=== PATIENT | female | born 1980 | race Caucasian/White ===

== ENCOUNTER 2018-01-24 20:11 | Emergency (ER) | payer OTHER, SELFPAY ==
--- NOTE | 2018-01-24 20:39 | RAD ---
THREE VIEWS LEFT ANKLE: 01/24/18 HISTORY: Trauma with left ankle pain. AP, lateral and oblique views left ankle obtained. Three views left ankle demonstrate no evidence of left ankle fractures, subluxations or bony lesions. IMPRESSION: Normal three views left ankle. POS: [facility]
--- NOTE | 2018-01-24 20:40 | RAD ---
THREE VIEWS LEFT FOOT: 01/24/18 HISTORY: Left foot pain after injury. AP, lateral, and oblique views left foot is obtained. Three views left foot demonstrate no evidence of left foot fractures, subluxations or bony lesions. IMPRESSION: Normal three views left foot. POS: [facility]
[2018-01-24] MEDS ORDERED: Ketorolac Tromethamine 60 MG/2 ML VIAL ONE ×2 (20:45→20:46)
[2018-01-24] MEDS ORDERED: Ibuprofen 800 MG TAB ONE (20:49)
[2018-01-24] MEDS ORDERED: cloNIDine 0.1 MG TAB ONE (21:19)
== END 2018-01-24 22:20 | disposition home or self-care (01) ==
LOC: ERS 20:11
DX: S93.602A Unspecified sprain of left foot, initial encounter (principal); S93.402A Sprain of unspecified ligament of left ankle, initial encounter; Z71.6 Tobacco abuse counseling; F17.210 Nicotine dependence, cigarettes, uncomplicated; X50.9XXA Other and unspecified overexertion or strenuous movements or postures, initial encounter
CPT/HCPCS: 99406; J1885

== ENCOUNTER 2018-04-07 18:28 | Emergency (ER) | payer SELFPAY ==
[2018-04-07 19:16] LABS: Bilirubin Negative (Negative); Blood, Urine Large (Negative); Clarity CLEAR (Clear); Glucose, Urine (Dipstick) >=1000 mg/dL (Negative); Leukocyte Negative (Negative); Nitrite Negative (Negative); Protein, Urine (Dipstick) Negative (Neg-Trace); Specific Gravity, Urine 1.036 (1.002-1.036); Urobilinogen 0.2 mg/dL (0.2-1.0)
[2018-04-07 19:17] LABS: Bacteria/HPF None Seen HPF (None Seen); Hyaline Casts/LPF 0-3 HYALINE CAST LPF (0-3 Hyaline); Pregnancy Test - Urine (BHCG) Negative (Negative); Pregu Control Background? CLEAR/WHITE (CLR/WHITE); Pregu Control Bar Appear? YES (CONTROL BAR); RBC/HPF 21-50 HPF (0-3); Specific Gravity 1.036 (1.002-1.036); Squamous Epithelial 0-3 HPF (0-3); WBC/HPF 0-3 HPF (0-3)
[2018-04-07] MEDS ORDERED: Acetaminophen/Codeine 30-300mg Tablet ONE (19:45)
[2018-04-07 20:09] LABS: #Eosinphils 0.1 thou/uL (0.0-0.7); #Lymphocytes 1.3 thou/uL (1.20-3.40); #Monocytes 0.5 thou/uL (0.11-0.59); #Neutrophils 3.8 thou/uL (1.40-6.50); %Basophils 0.7 % (0.0-1.0); %Eosinophils 1.3 % (0.0-10.0); %Lymphocytes 23.2 % (21.0-51.0); %Monocytes 8.2 % (0.0-10.0); %Neutrophils 66.6 % (42.0-75.0); Hemoglobin 17.3 g/dL (12.0-16.0); Mean Corpuscular HGB CONC 35.3 g/dL (32.0-36.0); Mean Corpuscular Volume 90.5 fL (78.0-98.0); Mean Platelet Volume 7.9 fL (7.4-10.4); Platelet Count 141 thou/uL (130-400); RBC Distribution Width 12.3 % (11.5-14.5); Red Blood Cell (RBC) Count 5.41 mill/uL (4.20-5.40); White Blood Cell (WBC) Count 5.8 thou/uL (4.8-10.8)
[2018-04-07 20:30] LABS: ALT (SGPT) 39 U/L (8-55); AST (SGOT) 34 U/L (5-34); Albumin 4.2 g/dL (3.5-5.0); Alkaline Phosphatase 142 U/L (40-150); Anion Gap 20 mmol/L (10-20); BUN (Urea Nitrogen) 8 mg/dL (7.0-18.7); Bilirubin, Total 0.7 mg/dL (0.2-1.2); Calc. Creatinine Clearance 0 mL/min (70-130); Calcium 9.8 mg/dL (7.8-10.44); Carbon Dioxide 17 mmol/L (22-29); Chloride 98 mmol/L (98-107); Estimated GFR-MDRD 76; Globulin 3.6 g/dL (2.4-3.5); Glucose 415 mg/dL (70-105); Potassium 4.1 mmol/L (3.5-5.1); Protein, Total 7.8 g/dL (6.0-8.3); Sodium 131 mmol/L (136-145)
[2018-04-07] MEDS ORDERED: Clindamycin 150 MG CAP ONE (21:48)
[2018-04-07] MEDS ORDERED: Ondansetron ODT 4 MG TAB ONE (22:04)
[2018-04-07] MEDS ORDERED: Morphine 4 MG/ML VIAL ONE (23:09)
== END 2018-04-07 23:20 | disposition home or self-care (01) ==
LOC: ERS 18:28
DX: K02.9 Dental caries, unspecified (principal); R10.9 Unspecified abdominal pain; R31.0 Gross hematuria; F17.210 Nicotine dependence, cigarettes, uncomplicated; F41.9 Anxiety disorder, unspecified; Z87.891 Personal history of nicotine dependence
CPT/HCPCS: 36415; 36416; 80053; 81003; 81015; 81025; 85025; 96361; 96374; 96376; J2270; Q0162

== ENCOUNTER 2018-07-28 19:31 | Emergency (ER) | payer MEDICAID, SELFPAY ==
[2018-07-28] MEDS ORDERED: Ondansetron PF 4 MG/2 ML Vial ONE (20:18)
[2018-07-28] MEDS ORDERED: Morphine 4 MG/ML VIAL ONE ×2 (20:18→22:09)
[2018-07-28 20:50] LABS: #Basophils 0.1 thou/uL (0.0-0.2); #Eosinphils 0.1 thou/uL (0.0-0.7); #Lymphocytes 2.4 thou/uL (1.20-3.40); #Monocytes 0.6 thou/uL (0.11-0.59); #Neutrophils 6.5 thou/uL (1.40-6.50); %Basophils 0.6 % (0.0-1.0); %Eosinophils 0.6 % (0.0-10.0); %Lymphocytes 24.9 % (21.0-51.0); %Monocytes 6.2 % (0.0-10.0); %Neutrophils 67.6 % (42.0-75.0); Hemoglobin 15.8 g/dL (12.0-16.0); Mean Corpuscular HGB CONC 32.7 g/dL (32.0-36.0); Mean Corpuscular Hemoglobin 29.2 pg (27.0-31.0); Mean Corpuscular Volume 89.2 fL (78.0-98.0); Mean Platelet Volume 7.3 fL (7.4-10.4); Platelet Count 213 thou/uL (130-400); RBC Distribution Width 10.7 % (11.5-14.5); Red Blood Cell (RBC) Count 5.43 mill/uL (4.20-5.40); White Blood Cell (WBC) Count 9.7 thou/uL (4.8-10.8)
[2018-07-28 20:53] LABS: Bilirubin Negative (Negative); Blood, Urine Negative (Negative); Clarity CLEAR (Clear); Glucose, Urine (Dipstick) Negative (Negative); Leukocyte Negative (Negative); Nitrite Negative (Negative); Protein, Urine (Dipstick) Negative (Neg-Trace); Specific Gravity, Urine 1.016 (1.002-1.036); Urobilinogen 0.2 mg/dL (0.2-1.0)
[2018-07-28 20:54] LABS: Pregnancy Test - Urine (BHCG) Negative (Negative); Pregu Control Background? CLEAR/WHITE (CLR/WHITE); Pregu Control Bar Appear? YES (CONTROL BAR); Specific Gravity 1.016 (1.002-1.036)
[2018-07-28 21:11] LABS: ALT (SGPT) 22 U/L (8-55); AST (SGOT) 20 U/L (5-34); Albumin 4.5 g/dL (3.5-5.0); Alkaline Phosphatase 67 U/L (40-150); Anion Gap 14 mmol/L (10-20); BUN (Urea Nitrogen) 13 mg/dL (7.0-18.7); Bilirubin, Total 0.3 mg/dL (0.2-1.2); Calc. Creatinine Clearance 0 mL/min (70-130); Calcium 10.1 mg/dL (7.8-10.44); Carbon Dioxide 22 mmol/L (22-29); Chloride 105 mmol/L (98-107); Estimated GFR-MDRD Greater than 90; Globulin 3.8 g/dL (2.4-3.5); Glucose 96 mg/dL (70-105); Lipase 29 U/L (8-78); Potassium 4.2 mmol/L (3.5-5.1); Protein, Total 8.3 g/dL (6.0-8.3); Sodium 137 mmol/L (136-145)
--- NOTE | 2018-07-28 21:55 | CT ---
CT ABDOMEN AND PELVIS WITHOUT CONTRAST: 07/28/18 Multiple axial tomograms were obtained through the abdomen and pelvis without IV enhancement. INDICATIONS: Abdominal pain. Left lower back pain with radiation to the left lower quadrant. Hematuria. FINDINGS: Lung bases clear. Liver, spleen, and pancreas unremarkable. Post cholecystectomy change noted. There are numerous small nonobstructing calculi in the upper collecting structures of both kidneys. T hese tiny calculi are too numerous to count and measure in the 1 to 3 mm range. There is a 2 cm cyst in the anterior cortex of the right kidney. There is no evidence of hydronephrosis. There is no evidence of ureteral calculus or obstruction. Uri nary bladder is unremarkable. Bowel loops unremarkable. Appendix appears normal. Pelvic structures are unremarkable including uterus and adnexa. No adenopathy. IMPRESSION: 1. Numerous tiny nonobstructing calculi in the upper collecting structures of both kidneys. 2. No evidence of ureteral calculus or hydronephrosis. POS: [facility]
== END 2018-07-28 22:13 | disposition home or self-care (01) ==
LOC: ERS 19:31
DX: N20.0 Calculus of kidney (principal); E11.9 Type 2 diabetes mellitus without complications; F41.9 Anxiety disorder, unspecified; F17.210 Nicotine dependence, cigarettes, uncomplicated; Z79.84 Long term (current) use of oral hypoglycemic drugs; Z87.442 Personal history of urinary calculi
CPT/HCPCS: 36415; 74176; 80053; 81003; 81025; 83690; 85025; 96361; 96374; 96375; 96376; J2270; J2405

== ENCOUNTER 2018-08-24 17:38 | Emergency (ER) | payer MEDICAID ==
[2018-08-24] MEDS ORDERED: Morphine 2 MG/ML SYRINGE ONE (18:24)
[2018-08-24] MEDS ORDERED: Ondansetron PF 4 MG/2 ML Vial ONE (18:30)
[2018-08-24 18:33] LABS: Bilirubin Negative (Negative); Blood, Urine Negative (Negative); Clarity CLEAR (Clear); Glucose, Urine (Dipstick) Negative (Negative); Leukocyte Trace (Negative); Nitrite Negative (Negative); Protein, Urine (Dipstick) Negative (Neg-Trace); Specific Gravity, Urine 1.024 (1.002-1.036); Urobilinogen 0.2 mg/dL (0.2-1.0)
[2018-08-24 18:35] LABS: Bacteria/HPF Rare-Few HPF (None Seen); Hyaline Casts/LPF 0-3 HYALINE CAST LPF (0-3 Hyaline); Pathc Cast-AUWi Flag 0.58 (0-2.49); WBC/HPF 0-3 HPF (0-3)
[2018-08-24 18:36] LABS: #Monocytes 0.5 thou/uL (0.11-0.59); #Neutrophils 7.3 thou/uL (1.40-6.50); %Basophils 0.4 % (0.0-1.0); %Eosinophils 0.4 % (0.0-10.0); %Lymphocytes 20.2 % (21.0-51.0); %Monocytes 5.3 % (0.0-10.0); %Neutrophils 73.8 % (42.0-75.0); Mean Corpuscular HGB CONC 33.9 g/dL (32.0-36.0); Mean Corpuscular Hemoglobin 29.8 pg (27.0-31.0); Mean Corpuscular Volume 87.9 fL (78.0-98.0); Mean Platelet Volume 7.5 fL (7.4-10.4); Platelet Count 225 thou/uL (130-400); RBC Distribution Width 11.2 % (11.5-14.5); Red Blood Cell (RBC) Count 5.35 mill/uL (4.20-5.40); White Blood Cell (WBC) Count 9.9 thou/uL (4.8-10.8)
[2018-08-24 18:40] LABS: BHCG - Serum Negative (NEGATIVE); Pregs Control Background? CLEAR/WHITE (CLR/WHITE); Pregs Control Bar Appear? YES (CONTROL BAR)
[2018-08-24 18:49] LABS: ALT (SGPT) 26 U/L (8-55); AST (SGOT) 22 U/L (5-34); Albumin 4.7 g/dL (3.5-5.0); Alkaline Phosphatase 75 U/L (40-150); Anion Gap 16 mmol/L (10-20); BUN (Urea Nitrogen) 11 mg/dL (7.0-18.7); Bilirubin, Total 0.7 mg/dL (0.2-1.2); Calc. Creatinine Clearance 0 mL/min (70-130); Calcium 9.8 mg/dL (7.8-10.44); Carbon Dioxide 21 mmol/L (22-29); Chloride 103 mmol/L (98-107); Estimated GFR-MDRD 88; Globulin 4.1 g/dL (2.4-3.5); Glucose 103 mg/dL (70-105); Potassium 3.8 mmol/L (3.5-5.1); Protein, Total 8.8 g/dL (6.0-8.3); Sodium 136 mmol/L (136-145)
[2018-08-24] MEDS ORDERED: Methocarbamol 1 GM in Sodium Chloride 0.9% 250 ML 250 ML IVPB ONE (20:00)
--- NOTE | 2018-08-24 20:13 | CT ---
CT ABDOMEN AND PELVIS WITHOUT CONTRAST: 08/24/2018 PROVIDED CLINICAL HISTORY: Left flank pain. COMPARISON: 07/28/2018 FINDINGS: The visualized lung bases are free of significant opacity. There is diffuse fatty infiltration of the liver. Changes of a prior cholecystectomy are seen. Bila teral nonobstructing nephrolithiasis is redemonstrated, with multiple small, 1 to 2 mm calcifications . There is no evidence for hydronephrosis. There is no evidence for a ureteral or bladder calculus. There is no bowel dilatation, inflammatory fat stranding, free fluid, or free air apparent. The osseous structures demonstrate no concerning lytic or blastic lesions. IMPRESSION: 1. No evidence for urinary tract calculi or hydronephrosis. 2. Nonobstructing bilateral nephrolithiasis. POS: [facility]
[2018-08-24] MEDS ORDERED: HYDROcodone/Acetaminophen 5/325 mg Tablet ONE (20:20)
--- NOTE | 2018-08-24 21:39 | ULT ---
TRANSABDOMINAL PELVIC ULTRASOUND WITH DOPPLER: 08/24/2018 PROVIDED CLINICAL HISTORY: Left lower quadrant pain. FINDINGS: The uterus measures about 10.2 x 4.4 x 6.3 cm and demonstrates a normal appearance to the uterine end ometrium and myometrium. Endometrial thickness is about 1 cm. The right ovary measures about 4.2 x 2.4 x 2.4 cm and appears sonographically unremarkable. The left ovary measures about 2.1 x 1 x 1.6 cm and appears sonographically unremarkable. Color Doppler and spectral analysis of the ovarian waveforms demonstrates normal flow bilaterally. T here is no evidence for free pelvic fluid. IMPRESSION: Unremarkable transabdominal pelvic ultrasound. POS: [facility]
[2018-08-24] MEDS ORDERED: Lorazepam 2 MG/ML VIAL ONE (23:15)
[2018-08-24] MEDS ORDERED: Dicyclomine 20 MG TAB ONE (23:31)
[2018-08-25 22:48] LABS: Chlamydia by PCR Not Detected (NotDetected); GC by PCR Not Detected (NotDetected)
== END 2018-08-24 23:18 | disposition home or self-care (01) ==
LOC: ERS 17:38
DX: G89.29 Other chronic pain (principal); M54.5 Low back pain; R10.32 Left lower quadrant pain; R19.7 Diarrhea, unspecified; R11.0 Nausea; F41.9 Anxiety disorder, unspecified; Z87.891 Personal history of nicotine dependence
CPT/HCPCS: 74176; 76856; 80053; 81003; 81015; 84703; 85025; 87086; 87480; 87491; 87510; 87591; 87660; 93976; 96361; 96365; 96375; J2060; J2270; J2405; J2800; J7050

== ENCOUNTER 2019-01-29 19:41 | Emergency (ER) | payer MEDICAID, OTHER ==
[2019-01-29 20:20] LABS: Bilirubin Negative (Negative); Blood, Urine Negative (Negative); Clarity CLEAR (Clear); Glucose, Urine (Dipstick) Negative (Negative); Leukocyte Negative (Negative); Nitrite Negative (Negative); Protein, Urine (Dipstick) Negative (Neg-Trace); Specific Gravity, Urine 1.018 (1.002-1.036); Urobilinogen 0.2 mg/dL (0.2-1.0); pH, Urine 6.5 (5.0-9.0)
[2019-01-29] MEDS ORDERED: Ketorolac Tromethamine 30 MG/ML VIAL ONE (20:21)
[2019-01-29] MEDS ORDERED: Ondansetron ODT 4 MG TAB ONE (20:21)
[2019-01-29 20:24] LABS: Pregnancy Test - Urine (BHCG) Negative (Negative); Pregu Control Background? CLEAR/WHITE (CLR/WHITE); Pregu Control Bar Appear? YES (CONTROL BAR); Specific Gravity 1.018 (1.002-1.036)
[2019-01-29] MEDS ORDERED: Morphine 4 MG/ML VIAL ONE (20:54)
[2019-01-29 21:25] LABS: ALT (SGPT) 53 U/L (8-55); AST (SGOT) 40 U/L (5-34); Albumin 4.5 g/dL (3.5-5.0); Alkaline Phosphatase 63 U/L (40-150); Anion Gap 17 mmol/L (10-20); BUN (Urea Nitrogen) 12 mg/dL (7.0-18.7); Bilirubin, Total 0.7 mg/dL (0.2-1.2); Calc. Creatinine Clearance 0 mL/min (70-130); Calcium 9.9 mg/dL (7.8-10.44); Carbon Dioxide 21 mmol/L (22-29); Chloride 104 mmol/L (98-107); Estimated GFR-MDRD 88; Globulin 3.5 g/dL (2.4-3.5); Glucose 119 mg/dL (70-105); Potassium 4.1 mmol/L (3.5-5.1); Sodium 138 mmol/L (136-145)
--- NOTE | 2019-01-29 21:28 | CT ---
Noncontrast enhanced CT images abdomen pelvis Johnna history: Left-sided flank pain. The lung bases are unremarkable. No evidence of free intraperitoneal air seen. Hepatic steatosis seen. The gallbladder is been surgically removed. The pancreas is unremarkable. The spleen is unremarkable. Adrenal glands unremarkable. Bilateral renal calculi seen. No definite evidence of the hydroureteronephrosis seen. No definite visible evidence of obstructing r enal calculi seen. Small bowel is unremarkable. Normal appendix is visualized. The colon is unremarkable decompressed. IMPRESSION: Nonobstructing bilateral renal calculi.
== END 2019-01-29 22:38 | disposition home or self-care (01) ==
LOC: ERS 19:41
DX: R10.9 Unspecified abdominal pain (principal); F41.9 Anxiety disorder, unspecified; E11.9 Type 2 diabetes mellitus without complications; Z87.891 Personal history of nicotine dependence; Z79.84 Long term (current) use of oral hypoglycemic drugs; Z87.442 Personal history of urinary calculi; Z79.899 Other long term (current) drug therapy
CPT/HCPCS: 74176; 80053; 81003; 81025; 96361; 96374; J1885; J2270; Q0162

== ENCOUNTER 2019-05-17 19:18 | Emergency (ER) | payer OTHER, SELFPAY ==
[2019-05-17 19:54] LABS: #Eosinphils 0.1 thou/uL (0.0-0.7); #Lymphocytes 2.3 thou/uL (1.20-3.40); #Monocytes 0.5 thou/uL (0.11-0.59); #Neutrophils 3.8 thou/uL (1.40-6.50); %Basophils 0.6 % (0.0-1.0); %Eosinophils 0.9 % (0.0-10.0); %Lymphocytes 34.5 % (21.0-51.0); %Monocytes 7.6 % (0.0-10.0); %Neutrophils 56.5 % (42.0-75.0); Hemoglobin 14.7 g/dL (12.0-16.0); Mean Corpuscular HGB CONC 34.4 g/dL (32.0-36.0); Mean Corpuscular Hemoglobin 30.3 pg (27.0-31.0); Mean Corpuscular Volume 88.1 fL (78.0-98.0); Mean Platelet Volume 7.3 fL (7.4-10.4); Platelet Count 237 thou/uL (130-400); RBC Distribution Width 10.8 % (11.5-14.5); Red Blood Cell (RBC) Count 4.87 mill/uL (4.20-5.40); White Blood Cell (WBC) Count 6.7 thou/uL (4.8-10.8)
[2019-05-17 20:16] LABS: ALT (SGPT) 52 U/L (8-55); AST (SGOT) 40 U/L (5-34); Albumin 4.4 g/dL (3.5-5.0); Alkaline Phosphatase 72 U/L (40-150); Anion Gap 11 mmol/L (10-20); BUN (Urea Nitrogen) 12 mg/dL (7.0-18.7); Bilirubin, Total 0.5 mg/dL (0.2-1.2); Calc. Creatinine Clearance 0 mL/min (70-130); Calcium 10.2 mg/dL (7.8-10.44); Carbon Dioxide 28 mmol/L (22-29); Chloride 101 mmol/L (98-107); Estimated GFR-MDRD 79; Globulin 3.5 g/dL (2.4-3.5); Glucose 153 mg/dL (70-105); Lipase 20 U/L (8-78); Potassium 3.5 mmol/L (3.5-5.1); Protein, Total 7.9 g/dL (6.0-8.3); Sodium 136 mmol/L (136-145)
[2019-05-17 20:31] LABS: Pregnancy Test - Urine (BHCG) Negative (Negative); Pregu Control Background? CLEAR/WHITE (CLR/WHITE); Pregu Control Bar Appear? YES (CONTROL BAR)
[2019-05-17 20:33] LABS: Bilirubin Negative (Negative); Blood, Urine 2+ (Negative); Calcium Oxalate Crystals 4+ HPF (None Seen); Clarity Turbid (Clear); Glucose, Urine (Dipstick) Normal (Negative); Leukocyte 250 Leu/uL (Negative); Mucous/LPF 1+ LPF (<2+); Nitrite Negative (Negative); Protein, Urine (Dipstick) 20 mg/dL (Neg-Trace); Urobilinogen Normal mg/dL (Less than 2)
[2019-05-17 20:34] LABS: Bacteria/HPF 1+ HPF (None Seen); Specific Gravity 1.032 (1.002-1.036)
--- NOTE | 2019-05-17 22:06 | CT ---
CT ABDOMEN NONCONTRAST CT PELVIS NONCONTRAST: (Urolithiasis protocol) DATE: 05/17/2019 HISTORY: 38-year-old female with right flank pain. COMPARISON: 01/29/2019 TECHNIQUE: IV injection of iodinated contrast media: None Oral contrast media: None FINDINGS: Other than for urolithiasis, the lack of IV and oral contrast limits the evaluation. Diffusely low hepatic attenuation represents fatty liver. Cholecystectomy clips. In addition to several bilateral tiny renal calculi in calyces, ranging from 1 mm for the smallest on e up to approximately 3 mm for the largest one in the left renal upper pole, there are also small faint, patchy calcific densities in the medullary pyramids. No hydronephrosis. No calculus in the ureters or urinary bladder. Within the limitations of a noncontrast scan, no obvious major pathology identified involving abdomin al aorta, pancreas, adrenals, spleen, urinary bladder. Normal appendix. No small bowel dilation. No signs of colonic diverticulitis. No interval change. Lung bases are clear. IMPRESSION: 1) nephrolithiasis consisting of several bilateral tiny renal calculi. 2) no obstructive uropathy. 3) nephrocalcinosis. Differential diagnosis for this includes medullary sponge kidney, renal tubular acidosis, and milk alkali syndrome. 4) hepatic steatosis. 5) status post cholecystectomy.
[2019-05-17] MEDS ORDERED: Ondansetron PF 4 MG/2 ML Vial ONE (22:58)
[2019-05-18] MEDS ORDERED: Fentanyl 100 MCG/2 ML VIAL ONE (00:30)
== END 2019-05-18 01:03 | disposition home or self-care (01) ==
LOC: ERS 19:18
DX: E86.0 Dehydration (principal); R10.9 Unspecified abdominal pain; E11.9 Type 2 diabetes mellitus without complications; F41.9 Anxiety disorder, unspecified; Z79.84 Long term (current) use of oral hypoglycemic drugs; Z87.891 Personal history of nicotine dependence; Z79.899 Other long term (current) drug therapy
CPT/HCPCS: 36415; 74176; 80053; 81003; 81015; 81025; 83690; 85025; 96361; 96374; 96375; J2405; J3010

== ENCOUNTER 2019-07-27 19:27 | Emergency (ER) | payer SELFPAY ==
[2019-07-27 20:24] LABS: Bilirubin Negative (Negative); Blood, Urine Trace (Negative); Clarity Clear (Clear); Glucose, Urine (Dipstick) Normal (Negative); Leukocyte 75 Leu/uL (Negative); Mucous/LPF 1+ LPF (<2+); Nitrite Negative (Negative); Protein, Urine (Dipstick) 20 mg/dL (Neg-Trace); Urobilinogen Normal mg/dL (Less than 2)
[2019-07-27 20:25] LABS: Bacteria/HPF 1+ HPF (None Seen)
[2019-07-27 21:50] LABS: #Lymphocytes 2.1 thou/uL (1.20-3.40); #Monocytes 0.5 thou/uL (0.11-0.59); #Neutrophils 5.8 thou/uL (1.40-6.50); %Basophils 0.5 % (0.0-1.0); %Eosinophils 0.5 % (0.0-10.0); %Lymphocytes 24.6 % (21.0-51.0); %Monocytes 5.4 % (0.0-10.0); %Neutrophils 68.9 % (42.0-75.0); Hemoglobin 15.6 g/dL (12.0-16.0); Mean Corpuscular HGB CONC 33.5 g/dL (32.0-36.0); Mean Corpuscular Hemoglobin 29.6 pg (27.0-31.0); Mean Corpuscular Volume 88.4 fL (78.0-98.0); Mean Platelet Volume 7.8 fL (7.4-10.4); Platelet Count 189 thou/uL (130-400); RBC Distribution Width 11.3 % (11.5-14.5); Red Blood Cell (RBC) Count 5.29 mill/uL (4.20-5.40); White Blood Cell (WBC) Count 8.4 thou/uL (4.8-10.8)
[2019-07-27 22:20] LABS: ALT (SGPT) 52 U/L (8-55); AST (SGOT) 38 U/L (5-34); Albumin 4.6 g/dL (3.5-5.0); Alkaline Phosphatase 69 U/L (40-110); Anion Gap 13 mmol/L (10-20); BUN (Urea Nitrogen) 9 mg/dL (7.0-18.7); Bilirubin, Total 0.9 mg/dL (0.2-1.2); Calc. Creatinine Clearance 0 mL/min (70-130); Calcium 9.5 mg/dL (7.8-10.44); Carbon Dioxide 21 mmol/L (22-29); Chloride 106 mmol/L (98-107); Estimated GFR-MDRD 85; Globulin 3.6 g/dL (2.4-3.5); Glucose 96 mg/dL (70-105); Potassium 4.3 mmol/L (3.5-5.1); Protein, Total 8.2 g/dL (6.0-8.3); Sodium 136 mmol/L (136-145)
--- NOTE | 2019-08-07 21:08 | EKG ---
Test Reason : Blood Pressure : / mmHG Vent. Rate : 124 BPM Atrial Rate : 124 BPM P-R Int : 136 ms QRS Dur : 086 ms QT Int : 334 ms P-R-T Axes : 043 028 017 degrees QTc Int : 479 ms Sinus tachycardia Anterolateral infarct , age undetermined Abnormal ECG Confirmed by HILDA LU ([id number]), purchasing expeditor ABBY WHITMORE ([id number] on 08/07/2019 9:07:20 PM Referred By: Confirmed By:HILDA LU
== END 2019-07-27 23:40 | disposition home or self-care (01) ==
LOC: ERS 19:27
DX: K64.4 Residual hemorrhoidal skin tags (principal); E11.9 Type 2 diabetes mellitus without complications; F41.9 Anxiety disorder, unspecified; Z87.891 Personal history of nicotine dependence; Z87.442 Personal history of urinary calculi
CPT/HCPCS: 36415; 80053; 81003; 81015; 85025; 93005

== ENCOUNTER 2022-11-07 17:49 | Emergency (ER) | payer MEDICAID, OTHER ==
[2022-11-07 18:28] LABS: Bilirubin Negative (Negative); Blood, Urine 3+ (Negative); Glucose, Urine (Dipstick) Normal (Negative); Ketone, Urine Negative (Negative); Leukocyte 25 Leu/uL (Negative); Nitrite Negative (Negative); Protein, Urine (Dipstick) 10 mg/dL (Neg-Trace); RBC/HPF Greater than 50 HPF (0-3); Specific Gravity, Urine 1.019 (1.002-1.036); Squamous Epithelial 0-3 HPF (0-3); Urobilinogen Normal mg/dL (Less than 2); WBC/HPF 0-3 HPF (0-3); pH, Urine 6.5 (5.0-9.0)
[2022-11-07 18:29] LABS: Bacteria/HPF Rare-Few HPF (None Seen); Clarity Cloudy (Clear)
[2022-11-07] MEDS ORDERED: Fentanyl 100 MCG/2 ML VIAL ONE ×2 (19:03→20:11)
[2022-11-07] MEDS ORDERED: Ondansetron PF 4 MG/2 ML Vial ONE (19:03)
[2022-11-07 19:29] LABS: #Basophils 0.1 thou/uL (0.0-0.2); #Eosinphils 0.1 thou/uL (0.0-0.7); #Lymphocytes 1.9 thou/uL (1.20-3.40); #Monocytes 0.7 thou/uL (0.11-0.59); #Neutrophils 6.3 thou/uL (1.40-6.50); %Basophils 1.2 % (0.0-1.0); %Eosinophils 0.6 % (0.0-10.0); %Lymphocytes 20.9 % (21.0-51.0); %Monocytes 7.5 % (0.0-10.0); %Neutrophils 69.8 % (42.0-75.0); BHCG - Serum Negative (NEGATIVE); Hemoglobin 14.7 g/dL (12.0-16.0); Mean Corpuscular HGB CONC 34.1 g/dL (32.0-36.0); Mean Corpuscular Hemoglobin 30.1 pg (27.0-31.0); Mean Corpuscular Volume 88.1 fl (78.0-98.0); Platelet Count 206 10x3/uL (130-400); Pregs Control Background? CLEAR/WHITE (CLR/WHITE); Pregs Control Bar Appear? YES (CONTROL BAR); RBC Distribution Width 11.9 % (11.5-14.5); Red Blood Cell (RBC) Count 4.88 mill/uL (4.20-5.40)
[2022-11-07 19:44] LABS: ALT (SGPT) 23 U/L (8-55); AST (SGOT) 19 U/L (5-34); Albumin 4.4 g/dL (3.5-5.0); Alkaline Phosphatase 61 U/L (40-110); Anion Gap 13 mmol/L (10-20); BUN (Urea Nitrogen) 10 mg/dL (7.0-18.7); Bilirubin, Total 0.5 mg/dL (0.2-1.2); CK (CPK) 78 U/L (29-168); Calc. Creatinine Clearance 0 mL/min (70-130); Calcium 9.4 mg/dL (7.8-10.44); Carbon Dioxide 22 mmol/L (22-29); Chloride 103 mmol/L (98-107); Estimated GFR 107; Globulin 3.5 g/dL (2.4-3.5); Glucose 120 mg/dL (70-105); Lipase 22 U/L (8-78); Potassium 3.9 mmol/L (3.5-5.1); Protein, Total 7.9 g/dL (6.0-8.3); Sodium 134 mmol/L (136-145)
[2022-11-07] MEDS ORDERED: Morphine 4 MG/ML VIAL ONE (20:55)
== END 2022-11-07 21:10 | disposition home or self-care (01) ==
LOC: ERS 17:49
DX: N13.2 Hydronephrosis with renal and ureteral calculous obstruction (principal); I10 Essential (primary) hypertension; E11.9 Type 2 diabetes mellitus without complications; F17.290 Nicotine dependence, other tobacco product, uncomplicated; Z79.899 Other long term (current) drug therapy; Z79.84 Long term (current) use of oral hypoglycemic drugs
CPT/HCPCS: 36415; 74176; 80053; 81003; 81015; 82550; 83690; 84703; 85025; 93005; J2270; J2405; J3010

== ENCOUNTER 2022-11-07 22:57 | Emergency (ER) | payer MEDICAID, OTHER ==
[2022-11-07] MEDS ORDERED: Morphine 4 MG/ML VIAL ONE (23:30)
[2022-11-07] MEDS ORDERED: Ondansetron PF 4 MG/2 ML Vial ONE (23:30)
[2022-11-07 23:57] LABS: #Basophils 0.1 thou/uL (0.0-0.2); #Eosinphils 0.1 thou/uL (0.0-0.7); #Lymphocytes 3.1 thou/uL (1.20-3.40); #Monocytes 0.7 thou/uL (0.11-0.59); #Neutrophils 7.3 thou/uL (1.40-6.50); %Basophils 0.6 % (0.0-1.0); %Eosinophils 0.6 % (0.0-10.0); %Lymphocytes 27.5 % (21.0-51.0); %Monocytes 6.1 % (0.0-10.0); %Neutrophils 65.2 % (42.0-75.0); Hemoglobin 14.1 g/dL (12.0-16.0); Mean Corpuscular HGB CONC 33.4 g/dL (32.0-36.0); Mean Corpuscular Hemoglobin 29.2 pg (27.0-31.0); Mean Corpuscular Volume 87.5 fl (78.0-98.0); Mean Platelet Volume 7.6 fL (7.4-10.4); Platelet Count 218 10x3/uL (130-400); RBC Distribution Width 11.9 % (11.5-14.5); Red Blood Cell (RBC) Count 4.81 mill/uL (4.20-5.40); White Blood Cell (WBC) Count 11.1 10x3/uL (4.8-10.8)
[2022-11-08 00:24] LABS: ALT (SGPT) 22 U/L (8-55); AST (SGOT) 20 U/L (5-34); Albumin 4.3 g/dL (3.5-5.0); Alkaline Phosphatase 55 U/L (40-110); Anion Gap 15 mmol/L (10-20); BUN (Urea Nitrogen) 10 mg/dL (7.0-18.7); Bilirubin, Total 0.9 mg/dL (0.2-1.2); Calc. Creatinine Clearance 0 mL/min (70-130); Calcium 9.3 mg/dL (7.8-10.44); Carbon Dioxide 22 mmol/L (22-29); Chloride 105 mmol/L (98-107); Estimated GFR 93; Globulin 3.5 g/dL (2.4-3.5); Glucose 162 mg/dL (70-105); Potassium 3.8 mmol/L (3.5-5.1); Protein, Total 7.8 g/dL (6.0-8.3); Sodium 138 mmol/L (136-145)
[2022-11-08] MEDS ORDERED: HYDROcodone/Acetaminophen 10/325 mg Tablet ONE (00:39)
[2022-11-08 00:56] LABS: Bacteria/HPF None Seen HPF (None Seen); Bilirubin Negative (Negative); Blood, Urine 3+ (Negative); Clarity Clear (Clear); Glucose, Urine (Dipstick) Normal (Negative); Ketone, Urine Negative (Negative); Leukocyte 250 Leu/uL (Negative); Nitrite Negative (Negative); Pregnancy Test - Urine (BHCG) Negative (Negative); Pregu Control Background? CLEAR/WHITE (CLR/WHITE); Pregu Control Bar Appear? YES (CONTROL BAR); Protein, Urine (Dipstick) Negative (Neg-Trace); RBC/HPF Greater than 50 HPF (0-3); Specific Gravity 1.016 (1.002-1.036); Specific Gravity, Urine 1.016 (1.002-1.036); Squamous Epithelial 0-3 HPF (0-3); Urobilinogen Normal mg/dL (Less than 2); pH, Urine 5.5 (5.0-9.0)
[2022-11-08] MEDS ORDERED: Ondansetron PF 4 MG/2 ML Vial ONE (02:16)
[2022-11-08] MEDS ORDERED: Fentanyl 100 MCG/2 ML VIAL ONE (02:19)
== END 2022-11-08 02:05 | disposition home or self-care (01) ==
LOC: ERS 22:57
DX: N13.2 Hydronephrosis with renal and ureteral calculous obstruction (principal); E11.9 Type 2 diabetes mellitus without complications; I10 Essential (primary) hypertension; F17.290 Nicotine dependence, other tobacco product, uncomplicated
CPT/HCPCS: 36415; 74176; 80053; 81003; 81015; 81025; 82550; 83690; 84703; 85025; 87086; 93005; 96374; 96375; 96376; J2270; J2405; J3010

== ENCOUNTER 2022-12-21 04:55 | Emergency (ER) | payer OTHER ==
[2022-12-21 05:31] LABS: #Eosinphils 0.1 thou/uL (0.0-0.7); #Lymphocytes 2.7 thou/uL (1.20-3.40); #Monocytes 0.6 thou/uL (0.11-0.59); #Neutrophils 4.4 thou/uL (1.40-6.50); %Basophils 0.4 % (0.0-1.0); %Eosinophils 1.9 % (0.0-10.0); %Lymphocytes 34.5 % (21.0-51.0); %Monocytes 7.3 % (0.0-10.0); %Neutrophils 55.9 % (42.0-75.0); Hemoglobin 13.7 g/dL (12.0-16.0); Mean Corpuscular HGB CONC 34.3 g/dL (32.0-36.0); Mean Corpuscular Volume 87.3 fl (78.0-98.0); Mean Platelet Volume 7.5 fL (7.4-10.4); Platelet Count 203 10x3/uL (130-400); RBC Distribution Width 11.6 % (11.5-14.5); Red Blood Cell (RBC) Count 4.56 mill/uL (4.20-5.40); White Blood Cell (WBC) Count 7.8 10x3/uL (4.8-10.8)
[2022-12-21] MEDS ORDERED: fentaNYL 50 mcg/mL 1 mL Vial ONE ×3 (05:33→07:16)
[2022-12-21] MEDS ORDERED: Ondansetron PF 4 MG/2 ML Vial ONE (05:33)
[2022-12-21 05:43] LABS: BHCG - Serum Negative (NEGATIVE); Pregs Control Background? CLEAR/WHITE (CLR/WHITE); Pregs Control Bar Appear? YES (CONTROL BAR)
[2022-12-21 05:56] LABS: ALT (SGPT) 23 U/L (8-55); AST (SGOT) 18 U/L (5-34); Alkaline Phosphatase 66 U/L (40-110); Anion Gap 14 mmol/L (10-20); BUN (Urea Nitrogen) 17 mg/dL (7.0-18.7); Bilirubin, Total 0.3 mg/dL (0.2-1.2); Calc. Creatinine Clearance 0 mL/min (70-130); Calcium 9.2 mg/dL (7.8-10.44); Carbon Dioxide 21 mmol/L (22-29); Chloride 103 mmol/L (98-107); Estimated GFR 92; Globulin 3.3 g/dL (2.4-3.5); Glucose 248 mg/dL (70-105); Lipase 45 U/L (8-78); Potassium 3.4 mmol/L (3.5-5.1); Protein, Total 7.3 g/dL (6.0-8.3); Sodium 135 mmol/L (136-145)
[2022-12-21 06:05] LABS: Bacteria/HPF None Seen HPF (None Seen); Bilirubin Negative (Negative); Blood, Urine 3+ (Negative); Clarity Clear (Clear); Glucose, Urine (Dipstick) Normal (Negative); Ketone, Urine Negative (Negative); Leukocyte Negative Leu/uL (Negative); Nitrite Negative (Negative); Protein, Urine (Dipstick) 20 mg/dL (Neg-Trace); RBC/HPF Greater than 50 HPF (0-3); Specific Gravity, Urine 1.029 (1.002-1.036); Squamous Epithelial None Seen HPF (0-3); Urobilinogen Normal mg/dL (Less than 2); pH, Urine 5.5 (5.0-9.0)
== END 2022-12-21 08:36 | disposition home or self-care (01) ==
LOC: ERS 04:55
DX: N13.2 Hydronephrosis with renal and ureteral calculous obstruction (principal); E11.9 Type 2 diabetes mellitus without complications; I10 Essential (primary) hypertension; F17.290 Nicotine dependence, other tobacco product, uncomplicated
CPT/HCPCS: 36415; 74176; 80053; 81003; 81015; 83690; 84703; 85025; 87086; 96374; 96375; 96376; J2405; J3010

== ENCOUNTER 2023-08-24 15:36 | Emergency (ER) | payer OTHER ==
[2023-08-24 16:05] LABS: Bilirubin Negative (Negative); Blood, Urine 3+ (Negative); CAUTI Indications for Culture Acute Hematuria; Clarity Turbid (Clear); Glucose, Urine (Dipstick) Normal (Negative); Ketone, Urine Negative (Negative); Leukocyte 25 Leu/uL (Negative); Nitrite Negative (Negative); Protein, Urine (Dipstick) Negative (Neg-Trace); RBC/HPF Greater than 50 HPF (0-3); Specific Gravity, Urine 1.019 (1.002-1.036); Squamous Epithelial 0-3 HPF (0-3); Urobilinogen Normal mg/dL (Less than 2); WBC/HPF 0-3 HPF (0-3)
[2023-08-24 16:06] LABS: Bacteria/HPF 1+ HPF (None Seen)
[2023-08-24 16:07] LABS: Pregnancy Test - Urine (BHCG) Negative (Negative); Pregu Control Background? CLEAR/WHITE (CLR/WHITE); Pregu Control Bar Appear? YES (CONTROL BAR); Specific Gravity 1.019 (1.002-1.036); Urine Culture Reflex No No
[2023-08-24] MEDS ORDERED: fentaNYL 50 mcg/mL 1 mL Vial ONE ×2 (16:32→17:23)
[2023-08-24] MEDS ORDERED: Amlodipine 5 MG TAB ONE (16:43)
== END 2023-08-24 18:08 | disposition home or self-care (01) ==
LOC: ERS 15:36
DX: R31.9 Hematuria, unspecified (principal); N20.0 Calculus of kidney; E11.9 Type 2 diabetes mellitus without complications; I10 Essential (primary) hypertension; F17.290 Nicotine dependence, other tobacco product, uncomplicated; Z79.84 Long term (current) use of oral hypoglycemic drugs; Z79.899 Other long term (current) drug therapy
CPT/HCPCS: 74176; 81001; 81025; 96374; 96376; J3010

== ENCOUNTER 2023-10-14 16:27 | Emergency (ER) | payer SELFPAY ==
[2023-10-14 16:53] LABS: Bacteria/HPF None Seen HPF (None Seen); Bilirubin Negative (Negative); Blood, Urine 2+ (Negative); CAUTI Indications for Culture Dysuria,urgency,freq; Clarity Clear (Clear); Glucose, Urine (Dipstick) Normal (Negative); Ketone, Urine Trace mg/dL (Negative); Leukocyte 25 Leu/uL (Negative); Nitrite Negative (Negative); Pregnancy Test - Urine (BHCG) Negative (Negative); Pregu Control Background? CLEAR/WHITE (CLR/WHITE); Pregu Control Bar Appear? YES (CONTROL BAR); Protein, Urine (Dipstick) Negative (Neg-Trace); RBC/HPF 21-50 HPF (0-3); Specific Gravity 1.015 (1.002-1.036); Specific Gravity, Urine 1.015 (1.002-1.036); Squamous Epithelial 0-3 HPF (0-3); Urobilinogen Normal mg/dL (Less than 2); pH, Urine 5.5 (5.0-9.0)
[2023-10-14 16:54] LABS: Urine Culture Reflex No No
[2023-10-14] MEDS ORDERED: Morphine 4 MG/ML VIAL ONE (17:47)
[2023-10-14] MEDS ORDERED: Ondansetron PF 4 MG/2 ML Vial ONE (17:48)
[2023-10-14 18:22] LABS: #Monocytes 0.6 thou/uL (0.11-0.59); #Neutrophils 8.5 thou/uL (1.40-6.50); %Basophils 0.2 % (0.0-1.0); %Eosinophils 0.3 % (0.0-10.0); %Lymphocytes 21.1 % (21.0-51.0); %Monocytes 5.1 % (0.0-10.0); %Neutrophils 72.8 % (42.0-75.0); Hematocrit 42.9 % (36.0-47.0); Hemoglobin 14.5 g/dL (12.0-16.0); Mean Corpuscular HGB CONC 33.8 g/dL (32.0-36.0); Mean Corpuscular Hemoglobin 28.6 pg (27.0-31.0); Mean Corpuscular Volume 84.6 fl (78.0-98.0); Mean Platelet Volume 9.6 fL (7.4-10.4); Platelet Count 264 10x3/uL (130-400); RBC Distribution Width 12.8 % (11.5-14.5); Red Blood Cell (RBC) Count 5.07 mill/uL (4.20-5.40); White Blood Cell (WBC) Count 11.6 10x3/uL (4.8-10.8)
[2023-10-14 18:46] LABS: ALT (SGPT) 25 U/L (8-55); AST (SGOT) 23 U/L (5-34); Albumin 4.5 g/dL (3.5-5.0); Alkaline Phosphatase 64 U/L (40-110); Anion Gap 13 mmol/L (10-20); BUN (Urea Nitrogen) 7 mg/dL (7.0-18.7); Bilirubin, Total 1.1 mg/dL (0.2-1.2); Calc. Creatinine Clearance 0 mL/min (70-130); Calcium 9.6 mg/dL (7.8-10.44); Carbon Dioxide 24 mmol/L (22-29); Chloride 102 mmol/L (98-107); Estimated GFR 108; Globulin 3.6 g/dL (2.4-3.5); Glucose 125 mg/dL (70-105); Potassium 3.7 mmol/L (3.5-5.1); Protein, Total 8.1 g/dL (6.0-8.3); Sodium 135 mmol/L (136-145)
[2023-10-14] MEDS ORDERED: Morphine 2 MG/ML VIAL ONE (19:02)
== END 2023-10-14 19:07 | disposition home or self-care (01) ==
LOC: ERS 16:27
DX: N20.0 Calculus of kidney (principal); E11.9 Type 2 diabetes mellitus without complications; I10 Essential (primary) hypertension; Z79.84 Long term (current) use of oral hypoglycemic drugs; Z87.891 Personal history of nicotine dependence; Z79.899 Other long term (current) drug therapy
CPT/HCPCS: 74176; 80053; 81001; 81025; 85025; 96361; 96374; 96375; 96376; J2270; J2272; J2405

== ENCOUNTER 2023-11-08 16:58 | Emergency (ER) | payer SELFPAY ==
[~2023-11-08 16:58] MED LIST: Iopamidol-370 76% 500 ML MDV (1 ML CHARGE) ONE
[2023-11-08 17:47] LABS: #Eosinphils 0.1 thou/uL (0.0-0.7); #Monocytes 0.5 thou/uL (0.11-0.59); #Neutrophils 6.6 thou/uL (1.40-6.50); %Basophils 0.4 % (0.0-1.0); %Eosinophils 0.5 % (0.0-10.0); %Lymphocytes 25.4 % (21.0-51.0); %Monocytes 5.3 % (0.0-10.0); Hematocrit 43.9 % (36.0-47.0); Hemoglobin 15.2 g/dL (12.0-16.0); Mean Corpuscular HGB CONC 34.6 g/dL (32.0-36.0); Mean Corpuscular Hemoglobin 28.7 pg (27.0-31.0); Mean Platelet Volume 10.4 fL (7.4-10.4); Platelet Count 231 10x3/uL (130-400); RBC Distribution Width 12.3 % (11.5-14.5); Red Blood Cell (RBC) Count 5.29 mill/uL (4.20-5.40); White Blood Cell (WBC) Count 9.8 10x3/uL (4.8-10.8)
[2023-11-08] MEDS ORDERED: Ondansetron PF 4 MG/2 ML Vial ONE ×2 (17:53→20:27)
[2023-11-08 18:13] LABS: Troponin I Less than 0.010 ng/mL (< 0.028)
[2023-11-08 18:14] LABS: Phosphorus 3.2 mg/dL (2.3-4.7)
[2023-11-08 18:16] LABS: ALT (SGPT) 31 U/L (8-55); AST (SGOT) 23 U/L (5-34); Albumin 4.7 g/dL (3.5-5.0); Alkaline Phosphatase 112 U/L (40-110); Anion Gap 17 mmol/L (10-20); BUN (Urea Nitrogen) 11 mg/dL (7.0-18.7); Bilirubin, Total 0.9 mg/dL (0.2-1.2); Calc. Creatinine Clearance 0 mL/min (70-130); Carbon Dioxide 22 mmol/L (22-29); Chloride 98 mmol/L (98-107); Estimated GFR 79; Globulin 3.6 g/dL (2.4-3.5); Lipase 32 U/L (8-78); Potassium 3.9 mmol/L (3.5-5.1); Protein, Total 8.3 g/dL (6.0-8.3); Sodium 133 mmol/L (136-145)
[2023-11-08 18:21] LABS: Critical Call Chemistry NUR.LM21@1821; Glucose 410 mg/dL (70-105)
[2023-11-08] MEDS ORDERED: Morphine 4 MG/ML VIAL ONE ×2 (18:28→22:02)
[2023-11-08 19:22] LABS: Bacteria/HPF None Seen HPF (None Seen); Bilirubin Negative (Negative); Blood, Urine 1+ (Negative); CAUTI Indications for Culture Pelvic or flank pain; Clarity Clear (Clear); Glucose, Urine (Dipstick) Greater than 1000 mg/dL (Negative); Ketone, Urine Negative (Negative); Leukocyte Negative Leu/uL (Negative); Nitrite Negative (Negative); Protein, Urine (Dipstick) 30 mg/dL (Neg-Trace); Specific Gravity, Urine 1.043 (1.002-1.036); Urobilinogen Normal mg/dL (Less than 2); WBC/HPF 0-3 HPF (0-3); Yeast-Budding 1+ HPF (None Seen)
[2023-11-08 19:24] LABS: Urine Culture Reflex No No
[2023-11-08 20:52] LABS: Actual Bicarbonate (HCO3v) 22.5 mEq/L (22-28); Base Excess -3.1 mEq/L (-2.0 to +3.0); Calcium, Ionized (venous) 1.16 mmol/L (1.16-1.32); Chloride (VBG) 100 mmol/L (98-106); Hematocrit-VBG 45 % (36.0-47.0); Hemoglobin (Hb) 15.3 g/dL (11.7-15.5); Potassium (VBG) 4.13 mmol/L (3.70-5.30); Sodium 139 mmol/L (133-146); pH (venous) 7.346 (7.32-7.43)
[2023-11-08 23:07] LABS: BHCG - Serum Negative (NEGATIVE); Pregs Control Background? CLEAR/WHITE (CLR/WHITE); Pregs Control Bar Appear? YES (CONTROL BAR)
[2023-11-09] MEDS ORDERED: Morphine 4 MG/ML VIAL ONE (00:36)
== END 2023-11-09 00:45 | disposition home or self-care (01) ==
LOC: ERS 16:58
DX: E11.65 Type 2 diabetes mellitus with hyperglycemia (principal); N20.1 Calculus of ureter; I10 Essential (primary) hypertension; Z87.891 Personal history of nicotine dependence
CPT/HCPCS: 36415; 71045; 74177; 80053; 81001; 82010; 82805; 83690; 83735; 84100; 84484; 84703; 85025; 96374; 96375; 96376; J2270; J2405

== ENCOUNTER 2024-04-30 03:54 | Emergency (ER) | payer SELFPAY ==
[2024-04-30] MEDS ORDERED: Ondansetron PF 4 MG/2 ML Vial ONE ×2 (04:34→07:52)
[2024-04-30] MEDS ORDERED: hydrOXYzine 25 MG TAB ONE (04:34)
[2024-04-30] MEDS ORDERED: Acetaminophen 500 MG TAB ONE (04:34)
[2024-04-30 04:58] LABS: #Basophils 0.03 10x3/uL (0.0-0.2); %Basophils 0.3 % (0.0-1.0); %Eosinophils 0.3 % (0.0-10.0); %Lymphocytes 21.1 % (21.0-51.0); %Monocytes 5.4 % (0.0-10.0); %Neutrophils 72.4 % (42.0-75.0); Hematocrit 48.5 % (36.0-47.0); Hemoglobin 16.9 g/dL (12.0-16.0); Mean Corpuscular HGB CONC 34.8 g/dL (32.0-36.0); Mean Corpuscular Hemoglobin 28.8 pg (27.0-31.0); Mean Corpuscular Volume 82.6 fL (78.0-98.0); Mean Platelet Volume 10.4 fL (7.4-10.4); Platelet Count 205 10x3/uL (130-400); RBC Distribution Width 11.9 % (11.5-14.5); Red Blood Cell (RBC) Count 5.87 mill/uL (4.20-5.40)
[2024-04-30] MEDS ORDERED: Morphine 4 MG/ML VIAL ONE ×2 (05:00→07:52)
[2024-04-30 05:02] LABS: BHCG - Serum Negative (NEGATIVE); Pregs Control Background? CLEAR/WHITE (CLR/WHITE); Pregs Control Bar Appear? YES (CONTROL BAR)
[2024-04-30 05:07] LABS: ALT (SGPT) 43 U/L (8-55); AST (SGOT) 33 U/L (5-34); Albumin 4.1 g/dL (3.5-5.0); Alkaline Phosphatase 103 U/L (40-110); Anion Gap 17 mmol/L (10-20); BUN (Urea Nitrogen) 7 mg/dL (7.0-18.7); Bilirubin, Total 1.6 mg/dL (0.2-1.2); Calc. Creatinine Clearance 0 mL/min (70-130); Calcium 9.7 mg/dL (7.8-10.44); Carbon Dioxide 20 mmol/L (22-29); Chloride 102 mmol/L (98-107); Estimated GFR 95; Globulin 4.2 g/dL (2.4-3.5); Glucose 337 mg/dL (70-105); Lipase 30 U/L (8-78); Potassium 3.4 mmol/L (3.5-5.1); Protein, Total 8.3 g/dL (6.0-8.3); Sodium 136 mmol/L (136-145)
[2024-04-30 05:18] LABS: Bacteria/HPF None Seen HPF (None Seen); Bilirubin Negative (Negative); Blood, Urine Negative (Negative); CAUTI Indications for Culture Pelvic or flank pain; Clarity Clear (Clear); Glucose, Urine (Dipstick) Greater than 1000 mg/dL (Negative); Ketone, Urine 10 mg/dL (Negative); Leukocyte Negative Leu/uL (Negative); Nitrite Negative (Negative); Protein, Urine (Dipstick) Negative (Neg-Trace); RBC/HPF 0-3 HPF (0-3); Specific Gravity, Urine 1.023 (1.002-1.036); Squamous Epithelial 0-3 HPF (0-3); Urobilinogen Normal mg/dL (Less than 2); WBC/HPF 0-3 HPF (0-3)
[2024-04-30 05:19] LABS: Urine Culture Reflex No No
[2024-04-30] MEDS ORDERED: Diazepam 5 MG TAB ONE (05:55)
[2024-04-30] MEDS ORDERED: Iopamidol-370 76% 500 ML MDV (1 ML CHARGE) ONE (10:37)
== END 2024-04-30 08:40 | disposition home or self-care (01) ==
LOC: ERS 03:54
DX: R10.9 Unspecified abdominal pain (principal); I10 Essential (primary) hypertension; E11.9 Type 2 diabetes mellitus without complications; F17.290 Nicotine dependence, other tobacco product, uncomplicated
CPT/HCPCS: 74177; 80053; 81001; 83690; 84703; 85025; 93005; 96374; 96375; 96376; J2272; J2405; Q9967

== ENCOUNTER 2024-08-01 00:20 | Emergency (ER) | payer SELFPAY ==
[2024-08-01 01:38] LABS: #Basophils Less than 0.03 10x3/uL (0.0-0.2); %Basophils 0.3 % (0.0-1.0); %Eosinophils 0.6 % (0.0-10.0); %Monocytes 7.1 % (0.0-10.0); %Neutrophils 67.7 % (42.0-75.0); Hematocrit 44.4 % (36.0-47.0); Hemoglobin 15.6 g/dL (12.0-16.0); Mean Corpuscular HGB CONC 35.1 g/dL (32.0-36.0); Mean Corpuscular Hemoglobin 30.1 pg (27.0-31.0); Mean Corpuscular Volume 85.5 fL (78.0-98.0); Mean Platelet Volume 10.5 fL (7.4-10.4); Platelet Count 159 10x3/uL (130-400); RBC Distribution Width 11.7 % (11.5-14.5); Red Blood Cell (RBC) Count 5.19 mill/uL (4.20-5.40)
[2024-08-01 02:00] LABS: ALT (SGPT) 34 U/L (8-55); AST (SGOT) 20 U/L (5-34); Acetaminophen Less than 10 mcg/mL (Less than 10); Albumin 3.8 g/dL (3.5-5.0); Alcohol Less than 10.0 mg/dL (Less than 10); Alkaline Phosphatase 90 U/L (40-110); Anion Gap 15 mmol/L (10-20); BUN (Urea Nitrogen) 6 mg/dL (7.0-18.7); Bilirubin, Total 0.7 mg/dL (0.2-1.2); Calc. Creatinine Clearance 0 mL/min (70-130); Calcium 8.9 mg/dL (7.8-10.44); Carbon Dioxide 20 mmol/L (22-29); Chloride 101 mmol/L (98-107); Estimated GFR 111; Globulin 3.5 g/dL (2.4-3.5); Glucose 298 mg/dL (70-105); Potassium 3.1 mmol/L (3.5-5.1); Protein, Total 7.3 g/dL (6.0-8.3); Salicylate Less than 8.0 mg/dL (Less than 8.0); Sodium 133 mmol/L (136-145)
[2024-08-01] MEDS ORDERED: Potassium Chloride 20 MEQ TAB ONE (02:52)
[2024-08-01 04:50] LABS: BHCG - Serum Negative (NEGATIVE); Pregs Control Background? CLEAR/WHITE (CLR/WHITE); Pregs Control Bar Appear? YES (CONTROL BAR)
[2024-08-01] MEDS ORDERED: risperiDONE 1 MG TAB ONE (05:21)
== END 2024-08-01 07:35 | disposition home or self-care (01) ==
LOC: ERS 00:20
DX: T43.212A Poisoning by selective serotonin and norepinephrine reuptake inhibitors, intentional self-harm, initial encounter (principal); E11.9 Type 2 diabetes mellitus without complications; I10 Essential (primary) hypertension; F17.290 Nicotine dependence, other tobacco product, uncomplicated; Z55.6 Problems related to health literacy; Z79.84 Long term (current) use of oral hypoglycemic drugs; Z79.899 Other long term (current) drug therapy
CPT/HCPCS: 80053; 80307; 84703; 85025; 93005; 94760; 99285

== ENCOUNTER 2025-05-30 22:09 | Emergency (ER) | payer OTHER ==
[2025-05-30] MEDS ORDERED: HYDROcodone/Acetaminophen 5/325 mg Tablet ONE (22:56)
[2025-05-30 23:01] LABS: #Basophils 0.03 10x3/uL (0.0-0.2); #Eosinophils 0.15 10x3/uL (0.0-0.7); #Monocytes 0.56 10x3/uL (0.11-0.59); #Neutrophils 6.10 10x3/uL (1.40-6.50); %Basophils 0.3 % (0.0-1.0); %Eosinophils 1.7 % (0.0-10.0); %Lymphocytes 21.5 % (21.0-51.0); %Monocytes 6.4 % (0.0-10.0); %Neutrophils 69.9 % (42.0-75.0); Hematocrit 42.4 % (36.0-47.0); Hemoglobin 14.2 g/dL (12.0-16.0); Mean Corpuscular Hemoglobin 28.6 pg (27.0-31.0); Mean Corpuscular Volume 85.3 fL (78.0-98.0); Platelet Count 228 10x3/uL (130-400); Red Blood Cell (RBC) Count 4.97 mill/uL (4.20-5.40); White Blood Cell (WBC) Count 8.74 10x3/uL (4.8-10.8)
[2025-05-30 23:04] LABS: Bacteria/HPF None Seen HPF (None Seen); CAUTI Indications for Culture Dysuria,urgency,freq; Glucose, Urine (Dipstick) Normal (Negative); Leukocyte 75 Leu/uL (Negative); Protein, Urine (Dipstick) Negative (Neg-Trace); RBC/HPF 0-3 HPF (0-3); Specific Gravity, Urine 1.013 (1.002-1.036)
[2025-05-30 23:09] LABS: Urine Culture Reflex No No
[2025-05-30 23:13] LABS: Cocaine Metabolite Screen Negative (Negative); THC/Cannabinoid Screen Negative (Negative); Tricyclic Screen Negative (Negative)
[2025-05-30 23:19] LABS: BHCG - Serum Negative (NEGATIVE); Pregs Control Background? CLEAR/WHITE (CLR/WHITE); Pregs Control Bar Appear? YES (CONTROL BAR)
[2025-05-30 23:30] LABS: ALT (SGPT) 20 U/L (Less than 34); AST (SGOT) 18 U/L (11-34); Acetaminophen Less than 10 mcg/mL (Less than 10); Albumin 4.2 g/dL (3.1-4.5); Alkaline Phosphatase 66 U/L (40-110); Anion Gap 14 mmol/L (10-20); BUN (Urea Nitrogen) 9 mg/dL (7.0-18.7); Bilirubin, Total 0.4 mg/dL (0.3-1.2); Calc. Creatinine Clearance 0 mL/min (70-130); Calcium 9.2 mg/dL (7.8-10.44); Carbon Dioxide 24 mmol/L (22-29); Chloride 103 mmol/L (98-107); Globulin 3.5 g/dL (2.4-3.5); Glucose 151 mg/dL (70-105); Potassium 3.8 mmol/L (3.5-5.1); Salicylate Less than 8.0 mg/dL (Less than 8.0); Sodium 137 mmol/L (136-145)
== END 2025-05-31 04:19 | disposition home or self-care (01) ==
LOC: ERS 22:09
DX: F41.9 Anxiety disorder, unspecified (principal); E11.9 Type 2 diabetes mellitus without complications; I10 Essential (primary) hypertension; F17.290 Nicotine dependence, other tobacco product, uncomplicated; Z79.84 Long term (current) use of oral hypoglycemic drugs; Z79.899 Other long term (current) drug therapy
CPT/HCPCS: 80053; 80306; 80307; 81001; 84703; 85025; 93005; 99285; Q0162